=== PATIENT | female | born 1965 | race Caucasian/White ===

== ENCOUNTER 2019-04-28 16:55 | Emergency (ER) | payer SELFPAY | END 2019-04-28 17:41 | disposition home or self-care (01) | LOC: MADERS 16:55 | DX: S81.811D Laceration without foreign body, right lower leg, subsequent encounter (principal); F41.9 Anxiety disorder, unspecified; F17.210 Nicotine dependence, cigarettes, uncomplicated; W45.8XXD Other foreign body or object entering through skin, subsequent encounter | CPT/HCPCS: 99281 ==

== ENCOUNTER 2019-05-05 16:14 | Emergency (ER) | payer SELFPAY | END 2019-05-05 16:41 | disposition home or self-care (01) | LOC: MADERS 16:14 | DX: Z48.02 Encounter for removal of sutures (principal); S81.811D Laceration without foreign body, right lower leg, subsequent encounter; F41.9 Anxiety disorder, unspecified; F17.210 Nicotine dependence, cigarettes, uncomplicated; W26.8XXD Contact with other sharp object(s), not elsewhere classified, subsequent encounter | CPT/HCPCS: 99406 ==